=== PATIENT | male | born 1960 | race Caucasian/White ===

== ENCOUNTER 2023-08-10 19:08 | Emergency (ER) | payer OTHER ==
[~2023-08-10] VITALS: Ht 177.8 cm; Wt 84.0 kg
[2023-08-10 19:30] VITALS: BP 139/77; TEMP 98.2; O2SAT 99
[2023-08-10] MEDS ORDERED: OFLO5DRO4 LEFT EAR (19:37)
[2023-08-10 20:21] VITALS: PULSE 80; RESP 16
== END 2023-08-10 20:22 | disposition home or self-care (01) ==
LOC: ER 19:08
DX: H60.92 Unspecified otitis externa, left ear (principal)
CPT/HCPCS: 99283